=== PATIENT | male | born 1970 | race Two or more races ===

== ENCOUNTER 2018-12-03 19:24 | Emergency (ER) | payer MEDICAID, MEDICARE, OTHER ==
[~2018-12-03] VITALS: Ht 172.7 cm; Wt 108.0 kg
--- NOTE | 2018-12-03 19:45 | NUR ---
ARACELIS MCCARTY AT BEDSIDE FOR MSE.
[2018-12-03 19:52] VITALS: BP 151/85
--- NOTE | 2018-12-03 19:52 | NUR ---
Patient discharged to home in stable conditon. Written and verbal after care instructions given. Patient verbalizes understanding of instructions. ALL BELONGINGS W/ PT. PT SELF-AMBULATED W/O DIFFICULTY.
== END 2018-12-03 19:52 | disposition home or self-care (01) ==
LOC: ER 19:28
DX: L03.012 Cellulitis of left finger (principal)
CPT/HCPCS: A4663

== ENCOUNTER 2021-11-14 11:49 | Emergency (ER) | payer OTHER ==
[~2021-11-14] VITALS: Ht 170.2 cm; Wt 99.8 kg
[2021-11-14] MEDS ORDERED: QUET400T PO (12:01)
[2021-11-14] MEDS ORDERED: ATOR20TA PO (12:01)
[2021-11-14] MEDS ORDERED: DIPH25CA83 PO (12:01)
[2021-11-14] MEDS ORDERED: LISI10TA29 PO (12:01)
[2021-11-14] MEDS ORDERED: GABAPENTIN (12:01)
[2021-11-14] MEDS ORDERED: KETOROLAC TROMETHAMINE 30 MG INJ IM ONE (12:15)
[2021-11-14] MEDS ORDERED: KETOROLAC TROMETHAMINE 30 MG INJ ONE (12:16)
--- NOTE | 2021-11-14 13:24 | NUR ---
dcd instructions provided to pt. wholeft room [id number]. vitals stable
== END 2021-11-14 13:25 | disposition home or self-care (01) ==
LOC: ER 11:49
DX: M79.662 Pain in left lower leg (principal); E11.9 Type 2 diabetes mellitus without complications; Z87.81 Personal history of (healed) traumatic fracture
CPT/HCPCS: 99284; 73564; 73590; 73610; 96372; J1885; A4663

== ENCOUNTER 2023-06-26 11:25 | Emergency (ER) | payer OTHER ==
[~2023-06-26] VITALS: Ht 170.2 cm; Wt 104.3 kg
[~2023-06-26 11:25] MED LIST: ATOR20TA PO; DIPH25CA83 PO; GABAPENTIN; LISI10TA29 PO; QUET400T PO
[2023-06-26] MEDS ORDERED: IBUP-1955 PO (12:15)
[2023-06-26] MEDS ORDERED: AMOX-430 PO (12:15)
[2023-06-26] MEDS ORDERED: DOXY100C5 PO (12:15)
[2023-06-26] MEDS ORDERED: LIDOCAINE HCL 2% 20 ML VIAL ONE (12:43)
[2023-06-26] MEDS ORDERED: LIDOCAINE HCL 1% 20 ML VIAL ONE (13:02)
[2023-06-26] MEDS: LIDOCAINE HCL 1% 20 ML VIAL IJ ONE (13:16)
[2023-06-26] MEDS: NEOMY/BACITRA/POLYMYXIN B OINT UD PACKET TP ONE (13:17)
[2023-06-26] MEDS ORDERED: NEOMY/BACITRA/POLYMYXIN B OINT UD PACKET TP ONE (13:17)
[2023-06-26 13:33] VITALS: BP 138/87; TEMP 208.6; O2SAT 98
== END 2023-06-26 13:33 | disposition home or self-care (01) ==
LOC: ER 11:25
DX: S20.119A Abrasion of breast, unspecified breast, initial encounter (principal); L03.211 Cellulitis of face; E78.5 Hyperlipidemia, unspecified; I10 Essential (primary) hypertension; Z98.890 Other specified postprocedural states; Z79.899 Other long term (current) drug therapy; Z60.2 Problems related to living alone; W26.8XXA Contact with other sharp object(s), not elsewhere classified, initial encounter; Y93.89 Activity, other specified; Y92.89 Other specified places as the place of occurrence of the external cause; Y99.8 Other external cause status
CPT/HCPCS: 99284; 10060; J3490; A4606; A4663

== ENCOUNTER 2023-06-28 19:21 | Emergency (ER) | payer OTHER, MEDICARE ==
[~2023-06-28] VITALS: Ht 170.2 cm; Wt 104.3 kg
[~2023-06-28 19:21] MED LIST changes: +AMOX-430 PO; +DOXY100C5 PO; +IBUP-1955 PO
[2023-06-28] MEDS ORDERED: FENO48TA6 PO (20:16)
[2023-06-28] MEDS ORDERED: ASPI81TA31 PO (20:16)
[2023-06-28] MEDS ORDERED: AMLO10TA59 PO (20:16)
[2023-06-28] MEDS ORDERED: DAPA10TA PO (20:16)
[2023-06-28] MEDS ORDERED: BACL10TA PO (20:16)
[2023-06-28] MEDS ORDERED: GLIM4TAB37 PO (20:16)
[2023-06-28] MEDS ORDERED: SEMA14TA (20:16)
[2023-06-28] MEDS ORDERED: METF-442 PO (20:16)
[2023-06-28] MEDS ORDERED: DIVA-78 PO (20:16)
[2023-06-28 20:34] LABS: BASOPHILS # (AUTO) 0.3 K/UL (0.0-0.2); EOSINOPHILS # (AUTO) 0.2 K/uL (0.0-0.7); EOSINOPHILS % (AUTO) 2.9 % (0.0-7.0); HEMATOCRIT 45.8 % (36.7-47.1); HEMOGLOBIN 15.9 g/dL (12.5-16.3); LYMPHOCYTES # (AUTO) 1.6 K/uL (0.8-4.8); LYMPHOCYTES % (AUTO) 26.2 % (20.5-51.5); MEAN CORPUSCULAR HEMOGLOBIN 31.3 uug (23.8-33.4); MEAN CORPUSCULAR HGB CONC 35 g/dL (32.5-36.3); MEAN CORPUSCULAR VOLUME 90.3 fL (73.0-96.2); MONOCYTES # (AUTO) 0.4 K/uL (0.1-1.30); MONOCYTES % (AUTO) 6.4 % (0.0-11.0); NEUTROPHILS # (AUTO) 3.6 K/uL (1.8-8.9); NEUTROPHILS % (AUTO) 59.5 % (38.5-71.5); PLATELET COUNT (AUTO) 237 K/uL (152-348); RED BLOOD CELL COUNT(AUTO) 5.08 MIL/uL (4.06-5.63); RED CELL DISTRIBUTION WIDTH 14.9 % (12.1-16.2); WHITE BLOOD COUNT (AUTO) 6.1 K/uL (3.6-10.2)
[2023-06-28 21:02] LABS: *BILIRUBIN,URIN NEGATIVE (NEGATIVE); *BLOOD, URINE NEGATIVE (NEGATIVE); *CLARITY,URINE CLEAR (CLEAR); *COLOR,URINE YELLOW (YELLOW); *KETONES,URINE NEGATIVE (NEGATIVE); *PROTEIN,URINE NEGATIVE (NEGATIVE); LEUKOCYTE ESTERASE ,URINE NEGATIVE (NEGATIVE); NITRITE, URINE NEGATIVE (NEGATIVE)
[2023-06-28 21:04] LABS: UGLUCOSE 3+ (NEGATIVE)
[2023-06-28 21:09] LABS: ALANINE AMINOTRANSFERASE 23 U/L (16-63); ALBUMIN 3.3 g/dL (3.4-5.0); ALKALINE PHOSPHATASE 112 U/L (50-136); ASPARTATE AMINOTRANSFERASE < 5 U/L (15-37); BILIRUBIN,TOTAL 0.3 mg/dL (0.2-1.0); CALCIUM 8.8 mg/dL (8.5-10.1); CARBON DIOXIDE 22 mmol/L (21-32); CHLORIDE 105 mmol/L (98-107); CREATININE 1.4 mg/dL (0.6-1.3); GLUCOSE 175 mg/dL (74-106); NT-PRO BNP 32 pg/mL (0-125); POTASSIUM 3.9 mmol/L (3.5-5.1); SODIUM SERUM 140 mmol/L (136-145); TOTAL PROTEIN, SERUM 7.4 g/dL (6.4-8.2); UREA NITROGEN, BLOOD 13 mg/dL (7-18)
[2023-06-28 21:40] LABS: RBC,URINE 0-3 /HPF (0-3)
[2023-06-28 21:41] LABS: BACTERIA,URINE FEW /HPF (NONE SEEN); SQUAMOUS EPITHELIAL CELL,UR FEW /HPF (NONE SEEN); WBC,URINE 0-3 /HPF (0-3)
[2023-06-28 21:44] LABS: *AMPHETAMINE, URINE NEGATIVE (NEGATIVE); *BARBITURATE, URINE NEGATIVE (NEGATIVE); *BENZODIAZEPINE, URINE NEGATIVE (NEGATIVE); *CANNABINOID, URINE NEGATIVE (NEGATIVE); *COCCAINE, URINE NEGATIVE (NEGATIVE); *OPIATE, URINE NEGATIVE (NEGATIVE); *PHENCYCLIDINE SCREEN,URINE NEGATIVE (NEGATIVE)
[2023-06-28 21:45] LABS: FENTANYL, URINE NEGATIVE (NEGATIVE)
[2023-06-28] MEDS ORDERED: IOHEXOL 350 100 ML INFUS..BTL ONE (21:48)
[2023-06-28] MEDS ORDERED: IV NORMAL SALINE 250 ML IV ONE (21:48)
[2023-06-28] MEDS ORDERED: SWABABLE VALVE TRANSFER SET EA MC ONE (21:48)
[2023-06-28 23:32] VITALS: BP 130/88; TEMP 98; O2SAT 98
== END 2023-06-28 23:33 | disposition home or self-care (01) ==
LOC: ER 19:23
DX: L03.211 Cellulitis of face (principal); I10 Essential (primary) hypertension; E78.5 Hyperlipidemia, unspecified; R51.9 Headache, unspecified; Z79.82 Long term (current) use of aspirin; Z98.890 Other specified postprocedural states; Z79.899 Other long term (current) drug therapy; Z60.2 Problems related to living alone
CPT/HCPCS: 99285; 70496; 80053; 83880; 85025; 84484; 36415; 70498; 80307; 81001; 70450; Q9967; A4606; A4663